=== PATIENT | female | born 1965 | race Caucasian/White ===

== ENCOUNTER 2017-01-18 21:07 | Inpatient (IN) | payer MEDICARE, OTHER ==
--- NOTE | ~2017-01-18 | HP ---
History And Physical [place] [address] [facility] [place]. [address] NAME: MANINDER SNOW : 61 STATUS : ADM [place] PAT#: [id number] AGE: 51 ADM/REG DATE : 01/18/17 MR#: [id number] REPORT SERV DATE: 01/19/17 DICTATED BY: CAPO PAIZ DATE: 01/18/17 REPORT STATUS : Draft TRANSCRIBED BY: MODL DATE: 01/18/17 DATE OF ADMISSION: 01/18/2017 CHIEF COMPLAINT: Shortness of breath. HISTORY OF PRESENT ILLNESS: The patient is a 51-year-old female with past medical history of COPD although the patient is a nonsmoker secondary to secondhand smoke, type 2 diabetes, O2 dependent from 3 to 4 L, coronary artery disease, gastroparesis, obesity, chronic back pain on chronic narcotics, congestive heart failure, fibromyalgia who presents after having progressive shortness of breath and weight gain over the last month. The patient reports that over the last month she has had increased weight gain, decreased exercise tolerance, and over the last 24 hours has had decreased exercise exertion that has been constant, moderate severity with no pain quality radiating symptoms associated with shortness of breath, orthopnea approximately 90 degrees, increased swelling in legs where she typically has chicken legs, now she has very big legs. No vomiting but did have nausea. No fever, chills, or diarrhea. No wheezing, redness, or dizziness. She has also had increased constipation and urinary retention, has previously seen Dr. Baird for her bladder who has also told that she possibly will need to do in and out caths but is not ready to use them. Symptoms are worsened with activity and lying down improved by sitting up. Symptoms are slightly better but not resolved. The patient has no increased edema, is on diuretic but not quite doing any fluid restrictions that she knows. REVIEW OF SYSTEMS: GENERAL: No fevers or chills. EYES: No eye pain or visual changes. ENT: No sore throat but did have sinus congestion which she has been on Cipro for 9/10 days. NEURO: No headache or confusion. SKIN: No urticaria or rash. RESPIRATORY: Does have shortness of breath, dyspnea on exertion. No wheezing. CV: Increased edema, has had mild chest discomfort, but no palpitations, chest discomfort associated with breathing cycle. GI: No vomiting, but positive nausea and constipation. : Dysuria with retention. MUSCULOSKELETAL: Generalized myalgias and arthralgias chronic with increased lower extremity swelling. ENDO: No fatigue or polyuria. HEME: No bleeding or bruising. IMMUNOLOGIC: Does have rhinorrhea. PSYCH: No anxiety or confusion. PAST MEDICAL HISTORY: Diabetes, diabetic neuropathy, diabetic gastroparesis, COPD, fibromyalgia, acid reflux, migraine, tension stress headache, sinusitis, coronary artery disease, CHF, and constipation. SURGERIES: Cataracts in both eyes, four bypass surgery including valve repair, complete hysterectomy, two sinus surgeries, adrenal gland removal, appendix, tubal , History And Physical [address] [address] NAME: MANINDER SNOW : 61 STATUS : ADM [place] PAT#: [id number] AGE: 51 ADM/REG DATE : 01/18/17 MR#: [id number] REPORT SERV DATE: 01/19/17 DICTATED BY: CAPO PAIZ DATE: 01/18/17 REPORT STATUS : Draft TRANSCRIBED BY: IRVIN DATE: 01/18/17 miscarriage, gallbladder, tonsils, and cyst removal from ovary. ALLERGIES: SULFA, SILVER SULFADIAZINE, SELDANE. HOME MEDICATIONS: DuoNebs, aspirin, Lipitor, ciprofloxacin ophthalmic, Plavix, Cardizem, Colace, fentanyl, ferrous sulfate, Flonase, folic acid, Lasix, Neurontin, hydralazine, NovoLog, Levemir, Combivent, Imdur, Prinivil, Claritin, Reglan, Roxicodone, prednisolone, Phenergan, Ranexa, Refresh Endura, and bromfenac. PHYSICAL EXAMINATION: VITAL SIGNS: The patient's blood pressure 147/60, temperature 98, pulse 82, respirations 20, O2 sats 92% on 2 L. GENERAL: No acute distress at rest. Obese. EYES: No scleral icterus. EOMI. ENT: Nares patent. Tongue midline. Round facies. RESPIRATORY: Bibasilar rales with distant breath sounds. No stridor, does have bibasilar rales but no stridor. CV: Regular rate. Mild systolic murmur. Bilateral 3+ pedal edema. GI: Soft, nontender. Central obesity. : Deferred. MUSCULOSKELETAL: Moves all extremities. SKIN: Warm and dry. LYMPH/EXTREMITIES: 3+ bilateral edema. NEURO: Alert and oriented. Symmetrical strength in hands. Gait not tested. PSYCH: Appropriate mood and affect in joking manner. DATA: BNP 112.5. CBC; WBC count 12.3, H and H 9.1 and 28.8, platelets 213, INR 1.0. Sodium 141, potassium 4.2, chloride 98, BUN 47, bicarb 37, creatinine 1.42, glucose 72, magnesium 2.2. Troponin 0.05. Chest x-ray with cardiomegaly. Official report still pending, does have basilar congestion and slight increased congestion left lung tony. EKG; rate 82, normal sinus rhythm, QTc 450. ASSESSMENT AND PLAN: 1. Likely acute heart failure exacerbation. 2. Chest pain. 3. Chronic obstructive pulmonary disease. 4. Diabetes type 2. 5. Leukocytosis. 6. Obesity. 7. Urinary retention. 8. Obstructive sleep apnea. 9. Anemia. PLAN: History And Physical [address] [address] NAME: MANINDER SNOW : 61 STATUS : ADM [place] PAT#: [id number] AGE: 51 ADM/REG DATE : 01/18/17 MR#: [id number] REPORT SERV DATE: 01/19/17 DICTATED BY: CAPO PAIZ DATE: 01/18/17 REPORT STATUS : Draft TRANSCRIBED BY: IRVIN DATE: 01/18/17 1. For CHF exacerbation, does have symptoms with orthopnea, bilateral edema, has had history of mitral repair, reports history of heart failure, follows Dr. Vasques, has Holter in place with positive weight gain. IV diuresis. The patient was taking Lasix p.o. but will likely need IV, Bumex, monitor I's and O's. Fluid restriction protocol initiated. We will repeat echocardiogram. Although the patient BNP is only mildly elevated clinically appears quite volume overloaded. 2. Chest pain. Treat CHF exacerbation. Follow troponins, EKG, echocardiogram. 3. COPD, O2, DuoNebs. The patient has CPAP that is to be reset and optimize on Saturday. She has not been using CPAP for years. 4. Diabetes type 2. Sliding scale insulin Levemir, titrate as p.o. increases. 5. Leukocytosis, has been on Cipro for sinusitis. 6. Obesity, positive weight gain with fluid, will need diuresis and monitoring. 7. Urinary retention with Fernandez. May need to follow with Dr. Baird. 8. Obstructive sleep apnea. CPAP, does follow with pulmonology as an outpatient. I reinforced use of CPAP, to get new training on Saturday from [employer]. We will continue O2 at this time. 9. Anemia. Monitor H and H. The patient reports having colonoscopy approximately a year ago. All questions answered to patient family at bedside. DISPOSITION: Pending echocardiogram and diuresis, stability and treatment as above and resolution of symptoms. DDN/MODL Capo Paiz MD / [id number] CC: MD Franky Downing II, M.D.
--- NOTE | ~2017-01-18 | CN ---
Consultation Report [facility] [address] [place]. [address] NAME: MANINDER SEGAL : 61 STATUS : ADM IN PAT#: [id number] AGE: 51 ADM/REG DATE : 01/19/17 MR#: [id number] REPORT SERV DATE: 01/23/17 DICTATED BY: DATE: REPORT STATUS : Draft TRANSCRIBED BY: MODL DATE: 01/23/17 DATE OF CONSULTATION: REASON FOR CONSULTATION: Acute kidney injury. HISTORY OF PRESENT ILLNESS: Ms Segal is a 51-year-old white female with CKD, who is followed in our office. It looks as though her baseline creatinine is around 1.4. She has known COPD, diabetes with multiple complications of such, and history of urinary retention. She presented to the hospital with shortness of breath, dyspnea on exertion, and worsening edema. The only recent medicine changes were approximately a few weeks to a month prior. She had some upper respiratory sinus symptoms, has been placed on some steroids. She thinks that is around the time that her edema began worsening. She also got put on some Cipro, and just being here in the hospital, her creatinine has gone from 1.4-2.9. She has also become increasingly more hyperkalemic with potassium of 5.7 today. This has been an ongoing issue for years now. She does have a history of pheochromocytoma and one adrenalectomy. She denies any decrease in urinary frequency, but did notice a decrease in the amount prior to presentation. PAST MEDICAL HISTORY: CKD, hyperkalemia, acute kidney injury, COPD, coronary artery disease, bypass, pheochromocytoma, status post one adrenalectomy, mitral valve replacement, diabetes, gastroparesis, urinary retention, anemia, chronic pain, and fibromyalgia. SOCIAL HISTORY: She is . No tobacco, alcohol, or illicit drug use. ALLERGIES: SULFA AND SILVER. FAMILY MEDICAL HISTORY: No end-stage renal disease. REVIEW OF SYSTEMS: Twelve-point review of systems was obtained and negative with the exception of that in the HPI. PHYSICAL EXAMINATION: VITAL SIGNS: Temperature 97.9, blood pressure 131/60, pulse 88, respiratory rate 20, O2 saturation is 98% on 4 L. GENERAL: This is a pleasant, cooperative, overweight white female. She is awake, alert, and oriented, answers questions appropriately. HEENT: Normocephalic and atraumatic. Conjunctivae clear. Sclerae anicteric. Pupils are equal and round. Oral mucosa is dry. NECK: Thick. I did not see any lymphadenopathy. LUNGS: Respirations are even and unlabored. Breath sounds are clear to auscultation. HEART: Rate is regular. Heart tones are distant. I did not hear any murmur, rub, or gallop. ABDOMEN: Obese, soft, nontender. Bowel sounds active. No masses or hepatosplenomegaly. No bruits. No CVA tenderness. Consultation Report [place] [id number] [place]. [address] NAME: MANINDER SEGAL : 61 STATUS : ADM IN PAT#: [id number] AGE: 51 ADM/REG DATE : 01/19/17 MR#: [id number] REPORT SERV DATE: 01/23/17 DICTATED BY: DATE: REPORT STATUS : Draft TRANSCRIBED BY: MODShirley DATE: 01/23/17 BACK: Within normal limits. EXTREMITIES: Noted with 1 to 2+ pitting edema. SKIN: Warm, dry, and intact. Pale. No unusual rash or skin lesions. NEURO: Generalized weakness. No focal deficits. Mood and affect, pleasant and appropriate. PERTINENT LABS AND X-RAYS: Her urinalysis, 30 mg/dL of protein, 54 red blood cells per high- power field. Moderate amount of blood on dipstick. Renal ultrasound was negative for any obstructive process. Sodium 139, potassium 5.7, chloride 99, CO2 37. BUN of 80, creatinine of 2.9, calcium of 8.6. WBCs 10, H and H are 8 and 27, and platelets 210,000. Echo was normal. IMPRESSION: 1. Acute kidney injury. 2. Chronic kidney disease. 3. Hyperkalemia. 4. Edema. 5. Hypertension. 6. History of urinary retention. 7. History of pheochromocytoma with one adrenalectomy. 8. Chronic obstructive pulmonary disease, on chronic O2. PLAN: Suspected acute kidney injury is worse in the setting of a possible over diuresis especially in the light of her normal echo plus hypotension. Edema was probably provoked by her prednisone. We will check urine studies to see if she has had progression of diabetic nephropathy. We will also check a cortisol level. Her anemia seems to have worsened as well. We will check iron studies and check an ABG. Decrease Neurontin. CHUYITA hoscarmita for edema control and check an SPEP. We will follow along with you. Thank you for the consultation. She is already seen in our CKD Clinic. She already has an appointment later this month and we will follow her there as well. OLIMPIA YUNIOR Fregoso / [id number]
--- NOTE | ~2017-01-18 | DS ---
Discharge Summary [address] [address] NAME: MANINDER SNOW : 61 STATUS : DIS IN PAT#: [id number] AGE: 51 ADM/REG DATE : 01/19/17 MR#: [id number] REPORT SERV DATE: 01/29/17 DICTATED BY: TOÑO GALLOWAY DATE: 01/28/17 REPORT STATUS : Draft TRANSCRIBED BY: MODL DATE: 01/28/17 ADMISSION DATE: 01/19/2017 DISCHARGE DATE: 01/28/2017 DISCHARGE DIAGNOSES: 1. Acute diastolic heart failure. 2. Acute kidney injury on chronic kidney disease, associated with diuresis. 3. Chronic hypoxemic and hypercapnic respiratory failure thought secondary to untreated obstructive sleep apnea and obesity hypoventilation syndrome. 4. Type 2 diabetes, uncontrolled during hospitalization with periods of hypo and hyperglycemia related to variable p.o. intake and gastroparesis. 5. Gastroparesis. 6. Opioid-induced constipation. 7. Chronic pain syndrome. 8. Peripheral neuropathy. 9. Voiding dysfunction. 10.Morbid obesity. 11.Fatty liver. 12.Hyperkalemia associated with acute kidney injury and HORTENSIA inhibitor use. 13.Coronary artery disease, post CABG. 14.Previous mitral valve repair. 15.Previous pheochromocytoma, post resection. 16.Chronic anemia. 17.Acute anemia. 18.Myoclonus thought secondary to Reglan in the setting of acute kidney injury plus other, improved at discharge. 19.Chronic obstructive pulmonary disease by history. OPERATIONS AND PROCEDURES: None. PRESENT ILLNESS: This is a 51-year-old white female who was triaged in the emergency room on 01/18/2017 at 1709 hours complaining of chest pain, swelling, abdominal distention, and shortness of breath. After evaluation in the emergency room, she was referred to the Hospitalist Service for admission. She was seen by Dr. Philip Matthew and admitted as described on admission history and physical examination. Additional history included weight gain and diminished exercise tolerance over the previous month with worsening shortness of breath over 24 hours prior to admission. She also complained of increasing constipation and urinary retention. ADDITIONAL HISTORY: Per Dr. Matthew. PHYSICAL EXAMINATION: Per Dr. Matthew. ADMISSION LABORATORY: Per Dr. Matthew. Discharge Summary [address] [address] NAME: MANINDER SNOW : 61 STATUS : DIS IN PAT#: [id number] AGE: 51 ADM/REG DATE : 01/19/17 MR#: [id number] REPORT SERV DATE: 01/29/17 DICTATED BY: TOÑO GALLOWAY DATE: 01/28/17 REPORT STATUS : Draft TRANSCRIBED BY: IRVIN DATE: 01/28/17 HOSPITAL COURSE: She was admitted by Dr. Matthew with: 1. Likely acute heart failure exacerbation. 2. Chest pain. 3. Chronic obstructive pulmonary disease. 4. Type 2 diabetes. 5. Leukocytosis. 6. Obesity. 7. Urinary retention. 8. Obstructive sleep apnea. 9. Anemia. She was admitted to [address] [place] [address]. She was started on IV diuresis. Her hospitalist care was assumed by Dr. Shaka Pereira on 01/19/2017, 01/20/2017, and 01/21/2017. Cardiology consultation was obtained with Dr. Vasques. An echocardiogram was obtained. Her echocardiogram was technically difficult. Her EF appeared to be normal. Cardiology did not suggest further evaluation noting troponins were 0.05, 0.05, and 0.05. With IV diuresis, she symptomatically improved. However, her creatinine increased from 1.42 on admission to 2.96 on 01/23/2017. During this time, she had a Fernandez catheter because of her urinary retention. A renal ultrasound did not show any abnormality. She is followed by the Nephrology group. Consultation was obtained. She was seen and it was suspected that her acute kidney injury was from over diuresis plus possible hypotension. She was given a small volume of IV fluid. Her diuretics had previously been held as had her HORTENSIA inhibitor therapy. By discharge, her creatinine had fallen back to 1.45. On 01/23/2017, arterial blood gases were obtained, and her pH was 7.33, pCO2 of 78, PO2 of 101 on FiO2 of 0.36. She has documented sleep apnea. She is also thought to have obesity hypoventilation syndrome. She is followed by Dr. Lott. She has not been using home CPAP as prescribed and in fact did not have her machine. During this hospitalization, auto titrating CPAP was made available. She admitted to limited compliance because of anxiety with maximum use being perhaps 1-1/2 hours per night. She agreed to purchase a CPAP machine and make every attempt to enhance her use. With her JORDAN, she developed some myoclonus. This was thought to be multifactorial with a large component related to Reglan use for gastroparesis. Her Reglan doses were adjusted. Her myoclonus improved. Her blood sugar control was quite variable during her hospitalization related to her gastroparesis, variable p.o. intake, and comorbidities. She had periods of both hyper and hypoglycemia. She had periods of hypoglycemia despite a dramatic reduction on admission from her home insulin doses. This will require further titration in the rehab setting. Her hemoglobin on admission was 9.1 and was 8.1 at discharge. She has reticulocyte count Discharge Summary [facility] [address] [facility] [address] [place]. [address] NAME: MANINDER SNOW : 61 STATUS : DIS IN PAT#: [id number] AGE: 51 ADM/REG DATE : 01/19/17 MR#: [id number] REPORT SERV DATE: 01/29/17 DICTATED BY: TOÑO GALLOWAY DATE: 01/28/17 REPORT STATUS : Draft TRANSCRIBED BY: IRVIN DATE: 01/28/17 percent of 2.8 and absolute reticulocyte count of 79.2. Anemia evaluation included a normal LDH of 193, normal iron of 42, low TIBC of 215, and ferritin of 135. Her B12 was 563, TSH 1.64, and a serum protein electrophoresis did not demonstrate any monoclonal gammopathy. Other issues during her hospitalization included adjustment of her blood pressure medication to avoid hypotension and intensification of her opioid induced constipation regimen. She was seen by Physical Therapy and Occupational Therapy early in her hospitalization. Inpatient rehab was recommended. She had used [facility] in the past and requested transfer there. She was approved for transfer. By 01/28/2017, it was felt she had achieved a level of improvement and stability where she could be safely transferred. On discharge from [facility], she will need followup with Dr. Lott, Dr. Baird, the Nephrology Groups, Dr. Patterson, and Dr. Vasques. At [place], she will use CPAP at 18 cm. She will continue O2 3 L/minute by nasal cannula during the day. Her transfer medications pending provider followup there will be aspirin 81 mg daily; Lipitor 40 mg daily; Plavix 75 mg daily; Duragesic patch 75 mcg, change every 72 hours; iron 325 mg daily; Flonase nasal spray daily at bedtime as needed; folic acid 1 mg daily; Lasix 40 mg a.m., 80 mg p.m. per Nephrology recommendation; Neurontin 400 mg with meals; NovoLog level 2 correction scale before meals; NovoLog 20 units before meals; if she eats greater than 50% of her meal, Levemir 10 units a.m., 32 units p.m.; Imdur 30 mg daily; Claritin 10 mg daily; Reglan 10 mg before meals; MiraLAX one packet twice daily; Senokot two twice daily; Phenergan 50 mg with meals; Ranexa 1000 mg daily; Anoro Ellipta 62.5/25, one inhalation daily; Apresoline 50 mg twice daily; Roxicodone 30 mg with meals; Tylenol 650 mg every four hours as needed; Dulcolax suppository as needed; hypoglycemia protocol with glucagon or glucose tabs as needed, Zofran 4 mg p.o. or sublingually every four hours as needed for nausea; Combivent Respimat four times daily; DuoNeb twice daily as needed; and the following eyedrops, Ciloxan ophthalmic, Pred-Forte, bromfenac, and Refresh as directed. She will not use Cardizem CD twice daily or Prinivil. Instead, she will use Coreg 12.5 mg twice daily, which provided satisfactory blood pressure control. Discharge time greater than 30 minutes. DD/MODL Toño Galloway M.D. / [id number] CC: Deana Canas M.D. Discharge Summary [address] [address] NAME: MANINDER SNOW : 61 STATUS : DIS IN PAT#: [id number] AGE: 51 ADM/REG DATE : 01/19/17 MR#: [id number] REPORT SERV DATE: 01/29/17 DICTATED BY: TOÑO GALLOWAY DATE: 01/28/17 REPORT STATUS : Draft TRANSCRIBED BY: MODL DATE: 01/28/17 Deana Mccarthy Jr., II, MD Darshan D. Naik, MD John C House, M.D. [facility] Jose Alejandro Lott MD
--- NOTE | ~2017-01-18 | ECH ---
Echocardiogram [place] [id number] [place]. [address] NAME: MANINDER SNOW : 61 STATUS : ADM IN PAT#: [id number] AGE: 51 ADM/REG DATE : 01/19/17 MR#: [id number] REPORT SERV DATE: 01/21/17 DICTATED BY: REJI VASQUES JR. DATE: 01/21/17 REPORT STATUS : Draft TRANSCRIBED BY: MODL DATE: 01/21/17 DATE OF ACQUISITION: 01/19/2017. ROOM NUMBER: 6111. INDICATIONS: CHF. TECH: Hang Shabazz is the RDCS. MEASUREMENTS: M-Mode and 2-dimensional echocardiography were performed. This was a technically difficult study. Definity contrast imaging agent was utilized to enhance the endocardial borders. The left atrium was dilated 4 cm compared to an aortic root diameter of 2.7 cm. The left ventricle was normal in size measuring 5.2 cm in end-diastole and 3.6 cm in end-systole. Overall, there appeared to be normal left ventricular systolic function without regional wall motion abnormality with ejection fraction of approximately 55%. The aortic valve was trileaflet. The mitral valve appeared to be poorly visualized. The remaining cardiac valves appeared to be poorly visualized. No pericardial or pleural effusion could be seen. A linear echo was noted and a pacemaker lead cannot be excluded. DOPPLER/COLOR FLOW: Conventional and Doppler color flow imaging were performed. Pseudonormalization and increased left atrial pressures are suggested. There was no mitral insufficiency. There was no significant tricuspid insufficiency. A peak right ventricular systolic pressure could not be obtained. Peak gradient across the aortic valve measured 7 mmHg and did not suggest aortic stenosis. CONCLUSION: NORMAL LEFT VENTRICULAR SYSTOLIC FUNCTION WITH DIASTOLIC DYSFUNCTION AND INCREASED LEFT ATRIAL PRESSURES WITH NO SIGNIFICANT VALVULAR DISEASE, NO EVIDENCE OF PULMONARY HYPERTENSION, AND IT IS A TECHNICALLY DIFFICULT STUDY. /IRVIN Reji Vasques Jr., M.D. / [id number] CC: MD Franky Downing II, M.D.
[2017-01-18 18:45] LABS: BASOPHILS 0.2 %; BASOPHILS ABSOLUTE 0.03 10/3/uL (0.0-0.16); EOSINOPHILS 2.8 %; EOSINOPHILS ABSOLUTE 0.34 10/3/uL (0.0-0.53); ER CBC TAT 0 Hrs 07 Mins; HEMOGLOBIN 9.1 g/dL (12.0-16.0); IMMATURE GRANULOCYTES 0.4 %; IMMATURE GRANULOCYTES ABSOLUTE 0.05 10/3/uL (0.0-0.11); LYMPHOCYTES 17.6 %; LYMPHOCYTES ABSOLUTE 2.17 10/3/uL (0.67-4.30); MEAN CORPUS HGB CONC 31.6 g/dL (32.0-36.0); MEAN CORPUSCULAR HEMOGLOB 29.1 pg (26.0-34.0); MEAN PLATELET VOLUME 11.1 fL (9.2-13.0); MONOCYTES 7.6 %; MONOCYTES ABSOLUTE 0.94 10/3/uL (0.21-1.20); NEUTROPHILS 71.4 %; NEUTROPHILS ABSOLUTE 8.78 10/3/uL (2.02-8.40); PLATELET COUNT 213 10/3/uL (150-400); RED CELL COUNT 3.13 10/6/uL (4.0-5.6); WHITE BLOOD CELLS 12.3 10/3/uL (4.5-10.5)
[2017-01-18 18:47] LABS: HEMATOCRIT 28.8 % (36.0-48.0); MANUAL DIFF NO %
[2017-01-18 18:55] LABS: PARTIAL THROMBO TIME 27.2 SEC (22.5-37.2)
[2017-01-18 19:02] LABS: CHLORIDE, SERUM 98 MMOL/L (96-112); CO2 (CARBON DIOXIDE) 37 MMOL/L (24-34); CREATININE 1.42 MG/DL (0.55-1.02); GFR AFRICAN AMERICAN 49 ML/MIN (>=60); GFR NON AFRICAN AMERICAN 42 ML/MIN (>=60); GLUCOSE, SERUM 72 MG/DL (60-99); POTASSIUM, SERUM 4.2 MMOL/L (3.5-5.3); SODIUM, SERUM 141 MMOL/L (135-148)
[2017-01-18 19:03] LABS: BUN (BLOOD UREA NITROGEN) 47 MG/DL (6-23); CHEST PAIN PROFILE TAT 0 Hrs 25 Mins; TROPONIN I 0.05 NG/ML (<0.05)
[~2017-01-18 21:07] MED LIST: CARTIA XT120 MG/24 PO; DIGITEK0.125 MG PO; DURA100 TOP; FOLIC PO; HALF81 PO; HUMULIN-R U-500 SC; IMDUR30 PO; IRON325 MG PO; LEVEMIR SC; LIDODERM TOP; LIPITOR20 PO; NEUR600 PO; NOVOLOG SC; NYS500UDL PO; OCEAN NAS; PHEN50TAB PO; PLAVIX PO; PREV30 PO; PRIN2.5 PO; RAN500 PO; REG PO; ROXICODONE30 MG PO; ZEBETA5 PO
[2017-01-18] MEDS ORDERED: LEVEMFLXPN SC ×2 (21:09)
[2017-01-18] MEDS ORDERED: NEUR400 PO (21:10)
[2017-01-18] MEDS ORDERED: ROXICODONE30 MG PO (21:10)
[2017-01-18] MEDS ORDERED: NOVOPEN SC (21:10)
[2017-01-18] MEDS ORDERED: DURA75 TOP (21:11)
[2017-01-18] MEDS ORDERED: CLARIT10 PO (21:11)
[2017-01-18] MEDS ORDERED: PLAVIX PO (21:12)
[2017-01-18] MEDS ORDERED: PR25 PO (21:12)
[2017-01-18] MEDS ORDERED: CARDCD120 PO (21:13)
[2017-01-18] MEDS ORDERED: RANEXA1000 MG PO (21:13)
[2017-01-18] MEDS ORDERED: APRES50 PO (21:13)
[2017-01-18] MEDS ORDERED: IMDUR30 PO (21:14)
[2017-01-18] MEDS ORDERED: LIPITOR40 PO (21:14)
[2017-01-18] MEDS ORDERED: REG PO (21:16)
[2017-01-18] MEDS ORDERED: L40 PO (21:16)
[2017-01-18] MEDS ORDERED: DUONEB INH (21:17)
[2017-01-18] MEDS ORDERED: ASAB PO (21:17)
[2017-01-18] MEDS ORDERED: PRIN5 PO (21:18)
[2017-01-18] MEDS ORDERED: FOLIC PO (21:18)
[2017-01-18] MEDS ORDERED: DSS PO (21:18)
[2017-01-18] MEDS ORDERED: FERROUS SULF325 M1 PO (21:18)
[2017-01-18] MEDS ORDERED: ANOROELLIPTA INH (21:19)
[2017-01-18] MEDS ORDERED: BROMFENAC 0.09% OPH (21:20)
[2017-01-18] MEDS ORDERED: CILOXAN OPH (21:21)
[2017-01-18] MEDS ORDERED: REFRES1 OPH (21:21)
[2017-01-18] MEDS ORDERED: COMBIVENT RESPIM4 GM INH (21:22)
[2017-01-18] MEDS ORDERED: CARDCD180 PO (21:24)
[2017-01-18] MEDS ORDERED: PREDFORTE OPH (21:25)
[2017-01-18] MEDS ORDERED: CIP5 PO (21:26)
[2017-01-18] MEDS ORDERED: FLONASE NAS ×2 (21:27→21:28)
[2017-01-19 02:11] LABS: CK-MB 1.3 NG/ML; CPK 25 U/L (0-200); TROPONIN I 0.05 NG/ML (<0.05)
[2017-01-19 07:12] LABS: BASOPHILS 0.1 %; BASOPHILS ABSOLUTE 0.01 10/3/uL (0.0-0.16); EOSINOPHILS 2.6 %; EOSINOPHILS ABSOLUTE 0.24 10/3/uL (0.0-0.53); HEMATOCRIT 28.2 % (36.0-48.0); HEMOGLOBIN 8.8 g/dL (12.0-16.0); IMMATURE GRANULOCYTES 0.3 %; IMMATURE GRANULOCYTES ABSOLUTE 0.03 10/3/uL (0.0-0.11); LYMPHOCYTES 12.2 %; LYMPHOCYTES ABSOLUTE 1.13 10/3/uL (0.67-4.30); MEAN CORPUS HGB CONC 31.2 g/dL (32.0-36.0); MEAN CORPUSCULAR VOLUME 93.1 fL (80-100); MEAN PLATELET VOLUME 11.2 fL (9.2-13.0); MONOCYTES 4.8 %; MONOCYTES ABSOLUTE 0.44 10/3/uL (0.21-1.20); NEUTROPHILS ABSOLUTE 7.41 10/3/uL (2.02-8.40); PLATELET COUNT 184 10/3/uL (150-400); RBC DISTRIBUTION WIDTH 12.8 % (12.0-16.0); RED CELL COUNT 3.03 10/6/uL (4.0-5.6); WHITE BLOOD CELLS 9.3 10/3/uL (4.5-10.5)
[2017-01-19 07:24] LABS: MANUAL DIFF NO %
[2017-01-19 07:27] LABS: CALCIUM, SERUM 8.9 MG/DL (8.5-10.4); CHLORIDE, SERUM 96 MMOL/L (96-112); CO2 (CARBON DIOXIDE) 36 MMOL/L (24-34); CPK 22 U/L (0-200); CREATININE 1.47 MG/DL (0.55-1.02); GFR AFRICAN AMERICAN 47 ML/MIN (>=60); GFR NON AFRICAN AMERICAN 40 ML/MIN (>=60); POTASSIUM, SERUM 4.6 MMOL/L (3.5-5.3); SODIUM, SERUM 141 MMOL/L (135-148)
[2017-01-19 07:28] LABS: BUN (BLOOD UREA NITROGEN) 43 MG/DL (6-23); CK-MB 1.3 NG/ML; GLUCOSE, SERUM 329 MG/DL (60-99); TROPONIN I 0.05 NG/ML (<0.05)
[2017-01-20 06:41] LABS: BUN (BLOOD UREA NITROGEN) 48 MG/DL (6-23); CALCIUM, SERUM 9.4 MG/DL (8.5-10.4); CHLORIDE, SERUM 98 MMOL/L (96-112); CO2 (CARBON DIOXIDE) 36 MMOL/L (24-34); CREATININE 1.43 MG/DL (0.55-1.02); GFR AFRICAN AMERICAN 48 ML/MIN (>=60); GFR NON AFRICAN AMERICAN 42 ML/MIN (>=60); GLUCOSE, SERUM 226 MG/DL (60-99); POTASSIUM, SERUM 4.7 MMOL/L (3.5-5.3); SODIUM, SERUM 143 MMOL/L (135-148)
[2017-01-21 06:46] LABS: GFR AFRICAN AMERICAN 27 ML/MIN (>=60); GFR NON AFRICAN AMERICAN 23 ML/MIN (>=60)
[2017-01-21 06:48] LABS: CALCIUM, SERUM 8.9 MG/DL (8.5-10.4); CHLORIDE, SERUM 98 MMOL/L (96-112); CO2 (CARBON DIOXIDE) 36 MMOL/L (24-34); GLUCOSE, SERUM 267 MG/DL (60-99)
[2017-01-21 06:53] LABS: BUN (BLOOD UREA NITROGEN) 59 MG/DL (6-23)
[2017-01-21 06:58] LABS: POTASSIUM, SERUM 5.5 MMOL/L (3.5-5.3); SODIUM, SERUM 142 MMOL/L (135-148)
[2017-01-22 04:50] LABS: BASOPHILS 0.1 %; BASOPHILS ABSOLUTE 0.01 10/3/uL (0.0-0.16); EOSINOPHILS 3.5 %; EOSINOPHILS ABSOLUTE 0.36 10/3/uL (0.0-0.53); HEMATOCRIT 26.3 % (36.0-48.0); HEMOGLOBIN 8.2 g/dL (12.0-16.0); IMMATURE GRANULOCYTES 0.4 %; IMMATURE GRANULOCYTES ABSOLUTE 0.04 10/3/uL (0.0-0.11); LYMPHOCYTES 17.9 %; LYMPHOCYTES ABSOLUTE 1.84 10/3/uL (0.67-4.30); MEAN CORPUS HGB CONC 31.2 g/dL (32.0-36.0); MEAN CORPUSCULAR HEMOGLOB 29.3 pg (26.0-34.0); MEAN CORPUSCULAR VOLUME 93.9 fL (80-100); MEAN PLATELET VOLUME 11.7 fL (9.2-13.0); MONOCYTES ABSOLUTE 0.72 10/3/uL (0.21-1.20); NEUTROPHILS 71.1 %; NEUTROPHILS ABSOLUTE 7.32 10/3/uL (2.02-8.40); PLATELET COUNT 184 10/3/uL (150-400); RBC DISTRIBUTION WIDTH 13.1 % (12.0-16.0); WHITE BLOOD CELLS 10.3 10/3/uL (4.5-10.5)
[2017-01-22 04:53] LABS: MANUAL DIFF NO %
[2017-01-22 05:05] LABS: BUN (BLOOD UREA NITROGEN) 72 MG/DL (6-23); CALCIUM, SERUM 8.5 MG/DL (8.5-10.4); CHLORIDE, SERUM 95 MMOL/L (96-112); CO2 (CARBON DIOXIDE) 35 MMOL/L (24-34); CREATININE 2.47 MG/DL (0.55-1.02); GFR AFRICAN AMERICAN 25 ML/MIN (>=60); GFR NON AFRICAN AMERICAN 22 ML/MIN (>=60); GLUCOSE, SERUM 205 MG/DL (60-99); POTASSIUM, SERUM 5.7 MMOL/L (3.5-5.3); SODIUM, SERUM 140 MMOL/L (135-148)
[2017-01-22 10:28] LABS: RETICULOCYTE COUNT 2.8 % (0.5-2.5); RETICULOCYTE COUNT ABSOLUTE 79.2 10/3/uL (20.2-119.8)
[2017-01-22 11:04] LABS: FERRITIN 135 NG/ML (8-252); IRON BINDING CAPACITY 248 MCG/DL (225-410); IRON, SERUM 60 MCG/DL (35-150)
[2017-01-22 18:07] LABS: BUN (BLOOD UREA NITROGEN) 74 MG/DL (6-23); CALCIUM, SERUM 8.8 MG/DL (8.5-10.4); CHLORIDE, SERUM 99 MMOL/L (96-112); CO2 (CARBON DIOXIDE) 37 MMOL/L (24-34); CREATININE 2.78 MG/DL (0.55-1.02); GFR AFRICAN AMERICAN 22 ML/MIN (>=60); GFR NON AFRICAN AMERICAN 19 ML/MIN (>=60); GLUCOSE, SERUM 84 MG/DL (60-99); POTASSIUM, SERUM 5.5 MMOL/L (3.5-5.3); SODIUM, SERUM 142 MMOL/L (135-148)
[2017-01-23 06:25] LABS: HEMATOCRIT 27.9 % (36.0-48.0); HEMOGLOBIN 8.4 g/dL (12.0-16.0); MANUAL DIFF YES %; MEAN CORPUS HGB CONC 30.1 g/dL (32.0-36.0); MEAN CORPUSCULAR HEMOGLOB 29.2 pg (26.0-34.0); MEAN CORPUSCULAR VOLUME 96.9 fL (80-100); MEAN PLATELET VOLUME 12.2 fL (9.2-13.0); PLATELET COUNT 210 10/3/uL (150-400); RBC DISTRIBUTION WIDTH 12.9 % (12.0-16.0); RED CELL COUNT 2.88 10/6/uL (4.0-5.6); WHITE BLOOD CELLS 10.8 10/3/uL (4.5-10.5)
[2017-01-23 06:38] LABS: BUN (BLOOD UREA NITROGEN) 80 MG/DL (6-23); CALCIUM, SERUM 8.6 MG/DL (8.5-10.4); CHLORIDE, SERUM 99 MMOL/L (96-112); CO2 (CARBON DIOXIDE) 37 MMOL/L (24-34); CREATININE 2.96 MG/DL (0.55-1.02); GFR AFRICAN AMERICAN 20 ML/MIN (>=60); GFR NON AFRICAN AMERICAN 17 ML/MIN (>=60); GLUCOSE, SERUM 177 MG/DL (60-99); POTASSIUM, SERUM 5.7 MMOL/L (3.5-5.3); SODIUM, SERUM 139 MMOL/L (135-148)
[2017-01-23 07:04] LABS: EOSINOPHILS 3 %; EOSINOPHILS ABSOLUTE (CALC) 0.32 10/3/uL (0.0-0.53); GIANT PLATELET OCC; LYMPHOCYTES 16 %; LYMPHOCYTES ABSOLUTE (CALC) 1.73 10/3/uL (0.67-4.30); MONOCYTES 5 %; MONOCYTES ABSOLUTE (CALC) 0.54 10/3/uL (0.21-1.20); NEUTROPHILS ABSOLUTE (CALC) 8.21 10/3/uL (2.02-8.40); PLATELET ESTIMATE ADQ (ADEQUATE); SEGMENTED NEUTROPHIL (0) 76 %; TOTAL NUCLEATED CELLS 100
[2017-01-23 07:05] LABS: RBC MORPHOLOGY NORM (NORMAL)
[2017-01-23 14:35] LABS: ASCORBIC ACID (UR NOT ORDER) NEG (NEG); BILIRUBIN, URINE NEGATIVE (NEG); KETONE, URINE NEGATIVE (NEG); LEUKOCYTE ESTERASE(NOT OR NEG (NEG); WBC (NOT ORDERED) (RFLEX) 1 (0-5)
[2017-01-23 16:22] LABS: CREATININE, URINE 47.1 MG/DL
[2017-01-23 16:27] LABS: % IRON SAT 20 % (20-50); FOLATE 69.5 NG/ML (>5.2); IRON BINDING CAPACITY 215 MCG/DL (225-410); IRON, SERUM 42 MCG/DL (35-150)
[2017-01-23 17:10] LABS: ALLENS TEST Pos; BE (BASE EXCESS) 12.4 MEQ/L (0 +/- 2.5); CARBOXYHEMOGLOBIN 1.6 % (0-3); DEVICE NC; HCO3 (ACTUAL BICARBONATE) 40.1 MEQ/L (23-27); HEMOBLOGIN CONTENT 8.2 G/DL (12-16); INSTRUMENT SERIAL # 8083; METHEMOGLOBIN 0.3 % (0-3); O2 CONTENT 11.2 VOL% (18-24); OPERATOR ID 35785; PCO2 (CO2 TENSION) 78 MMHG (35-45); PO2 (O2 TENSION) 101 MMHG (79-93); SAMPLE Arterial; pH 7.33 (7.37-7.43)
[2017-01-24 06:43] LABS: BASOPHILS 0.2 %; BASOPHILS ABSOLUTE 0.02 10/3/uL (0.0-0.16); EOSINOPHILS 3.5 %; EOSINOPHILS ABSOLUTE 0.32 10/3/uL (0.0-0.53); HEMATOCRIT 26.7 % (36.0-48.0); HEMOGLOBIN 8.3 g/dL (12.0-16.0); IMMATURE GRANULOCYTES 0.3 %; IMMATURE GRANULOCYTES ABSOLUTE 0.03 10/3/uL (0.0-0.11); LYMPHOCYTES 15.9 %; LYMPHOCYTES ABSOLUTE 1.47 10/3/uL (0.67-4.30); MEAN CORPUS HGB CONC 31.1 g/dL (32.0-36.0); MEAN CORPUSCULAR HEMOGLOB 29.6 pg (26.0-34.0); MEAN CORPUSCULAR VOLUME 95.4 fL (80-100); MEAN PLATELET VOLUME 10.8 fL (9.2-13.0); MONOCYTES 6.6 %; MONOCYTES ABSOLUTE 0.61 10/3/uL (0.21-1.20); NEUTROPHILS 73.5 %; NEUTROPHILS ABSOLUTE 6.79 10/3/uL (2.02-8.40); PLATELET COUNT 172 10/3/uL (150-400); RBC DISTRIBUTION WIDTH 12.7 % (12.0-16.0); WHITE BLOOD CELLS 9.2 10/3/uL (4.5-10.5)
[2017-01-24 06:46] LABS: MANUAL DIFF NO %
[2017-01-24 06:58] LABS: CALCIUM, SERUM 8.8 MG/DL (8.5-10.4); CHLORIDE, SERUM 100 MMOL/L (96-112); CO2 (CARBON DIOXIDE) 34 MMOL/L (24-34); GLUCOSE, SERUM 209 MG/DL (60-99); PHOSPHORUS, SERUM 3.5 MG/DL (2.5-4.5); POTASSIUM, SERUM 5.5 MMOL/L (3.5-5.3); SODIUM, SERUM 138 MMOL/L (135-148)
[2017-01-24 07:00] LABS: BUN (BLOOD UREA NITROGEN) 70 MG/DL (6-23); CREATININE 2.19 MG/DL (0.55-1.02); GFR AFRICAN AMERICAN 29 ML/MIN (>=60); GFR NON AFRICAN AMERICAN 25 ML/MIN (>=60)
[2017-01-24 07:06] LABS: T PROTEIN (ELECT)(NOT OR 6.2 G/DL (6.0-8.5)
[2017-01-24 09:46] LABS: A/G 1.23 RATIO (0.9-2.10); ALB RELATIVE % 55.1 % (60.0-89.0); ALBUMIN (ELECTRO) 3.42 GM/DL (3.2-5.5); ALPHA 1 (ELECTRO) 0.25 GM/DL (0.1-0.4); ALPHA 2 (ELECTRO) 0.95 GM/DL (0.5-1.10); ALPHA 2 RELAT % 15.3 % (4.5-26.0); BETA GLOBULIN (SPE) 0.79 GM/DL (0.60-1.30); BETA RELATIVE % 12.7 % (9.0-22.0); GAMMA RELAT % 12.9 % (6.0-22.0)
[2017-01-25 08:21] LABS: BASOPHILS 0.3 %; BASOPHILS ABSOLUTE 0.03 10/3/uL (0.0-0.16); EOSINOPHILS 3.3 %; EOSINOPHILS ABSOLUTE 0.39 10/3/uL (0.0-0.53); HEMATOCRIT 27.2 % (36.0-48.0); HEMOGLOBIN 8.4 g/dL (12.0-16.0); IMMATURE GRANULOCYTES 0.4 %; IMMATURE GRANULOCYTES ABSOLUTE 0.05 10/3/uL (0.0-0.11); LYMPHOCYTES 10.9 %; LYMPHOCYTES ABSOLUTE 1.27 10/3/uL (0.67-4.30); MANUAL DIFF NO %; MEAN CORPUS HGB CONC 30.9 g/dL (32.0-36.0); MEAN CORPUSCULAR VOLUME 93.8 fL (80-100); MEAN PLATELET VOLUME 11.6 fL (9.2-13.0); MONOCYTES 6.4 %; MONOCYTES ABSOLUTE 0.75 10/3/uL (0.21-1.20); NEUTROPHILS 78.7 %; NEUTROPHILS ABSOLUTE 9.17 10/3/uL (2.02-8.40); PLATELET COUNT 188 10/3/uL (150-400); RBC DISTRIBUTION WIDTH 12.9 % (12.0-16.0); WHITE BLOOD CELLS 11.7 10/3/uL (4.5-10.5)
[2017-01-25 08:34] LABS: ALBUMIN 3.2 G/DL (3.5-5.0); BUN (BLOOD UREA NITROGEN) 77 MG/DL (6-23); CALCIUM, SERUM 8.8 MG/DL (8.5-10.4); CHLORIDE, SERUM 100 MMOL/L (96-112); CO2 (CARBON DIOXIDE) 35 MMOL/L (24-34); CREATININE 2.27 MG/DL (0.55-1.02); GFR AFRICAN AMERICAN 28 ML/MIN (>=60); GFR NON AFRICAN AMERICAN 24 ML/MIN (>=60); GLUCOSE, SERUM 192 MG/DL (60-99); PHOSPHORUS, SERUM 4.4 MG/DL (2.5-4.5); POTASSIUM, SERUM 5.9 MMOL/L (3.5-5.3); SODIUM, SERUM 140 MMOL/L (135-148)
[2017-01-25 14:08] LABS: BUN (BLOOD UREA NITROGEN) 73 MG/DL (6-23); CALCIUM, SERUM 8.6 MG/DL (8.5-10.4); CHLORIDE, SERUM 97 MMOL/L (96-112); CO2 (CARBON DIOXIDE) 36 MMOL/L (24-34); CREATININE 2.13 MG/DL (0.55-1.02); GFR AFRICAN AMERICAN 30 ML/MIN (>=60); GFR NON AFRICAN AMERICAN 26 ML/MIN (>=60); GLUCOSE, SERUM 187 MG/DL (60-99); POTASSIUM, SERUM 5.4 MMOL/L (3.5-5.3); SODIUM, SERUM 139 MMOL/L (135-148)
[2017-01-26 04:50] LABS: BASOPHILS 0.1 %; BASOPHILS ABSOLUTE 0.01 10/3/uL (0.0-0.16); EOSINOPHILS 4.2 %; EOSINOPHILS ABSOLUTE 0.34 10/3/uL (0.0-0.53); HEMATOCRIT 25.8 % (36.0-48.0); IMMATURE GRANULOCYTES 0.2 %; IMMATURE GRANULOCYTES ABSOLUTE 0.02 10/3/uL (0.0-0.11); LYMPHOCYTES 13.5 %; MEAN CORPUSCULAR HEMOGLOB 29.2 pg (26.0-34.0); MEAN CORPUSCULAR VOLUME 94.2 fL (80-100); MEAN PLATELET VOLUME 11.7 fL (9.2-13.0); MONOCYTES 5.9 %; MONOCYTES ABSOLUTE 0.48 10/3/uL (0.21-1.20); NEUTROPHILS 76.1 %; NEUTROPHILS ABSOLUTE 6.19 10/3/uL (2.02-8.40); PLATELET COUNT 174 10/3/uL (150-400); RED CELL COUNT 2.74 10/6/uL (4.0-5.6); WHITE BLOOD CELLS 8.1 10/3/uL (4.5-10.5)
[2017-01-26 04:58] LABS: MANUAL DIFF NO %
[2017-01-26 05:08] LABS: ALBUMIN 3.1 G/DL (3.5-5.0); C-REACTIVE PROTEIN 8.6 MG/L (<8.0); CALCIUM, SERUM 8.7 MG/DL (8.5-10.4); CHLORIDE, SERUM 100 MMOL/L (96-112); CO2 (CARBON DIOXIDE) 35 MMOL/L (24-34); CREATININE 1.72 MG/DL (0.55-1.02); GFR AFRICAN AMERICAN 39 ML/MIN (>=60); GFR NON AFRICAN AMERICAN 33 ML/MIN (>=60); GLUCOSE, SERUM 190 MG/DL (60-99); PHOSPHORUS, SERUM 4.6 MG/DL (2.5-4.5); SODIUM, SERUM 141 MMOL/L (135-148)
[2017-01-26 05:10] LABS: BUN (BLOOD UREA NITROGEN) 63 MG/DL (6-23)
[2017-01-26 05:51] LABS: PROCALCITONIN <0.05 ng/mL (<0.5)
[2017-01-27 05:52] LABS: ALBUMIN 3.1 G/DL (3.5-5.0); BUN (BLOOD UREA NITROGEN) 49 MG/DL (6-23); CALCIUM, SERUM 8.4 MG/DL (8.5-10.4); CHLORIDE, SERUM 99 MMOL/L (96-112); CO2 (CARBON DIOXIDE) 36 MMOL/L (24-34); CREATININE 1.56 MG/DL (0.55-1.02); GFR AFRICAN AMERICAN 44 ML/MIN (>=60); GFR NON AFRICAN AMERICAN 38 ML/MIN (>=60); GLUCOSE, SERUM 147 MG/DL (60-99); PHOSPHORUS, SERUM 3.7 MG/DL (2.5-4.5); POTASSIUM, SERUM 5.7 MMOL/L (3.5-5.3); SODIUM, SERUM 142 MMOL/L (135-148)
[2017-01-28 05:43] LABS: BASOPHILS 0.2 %; BASOPHILS ABSOLUTE 0.02 10/3/uL (0.0-0.16); EOSINOPHILS ABSOLUTE 0.25 10/3/uL (0.0-0.53); HEMATOCRIT 26.8 % (36.0-48.0); HEMOGLOBIN 8.1 g/dL (12.0-16.0); IMMATURE GRANULOCYTES 0.4 %; IMMATURE GRANULOCYTES ABSOLUTE 0.03 10/3/uL (0.0-0.11); LYMPHOCYTES 16.2 %; LYMPHOCYTES ABSOLUTE 1.36 10/3/uL (0.67-4.30); MEAN CORPUS HGB CONC 30.2 g/dL (32.0-36.0); MEAN CORPUSCULAR VOLUME 96.1 fL (80-100); MEAN PLATELET VOLUME 11.4 fL (9.2-13.0); MONOCYTES 5.6 %; MONOCYTES ABSOLUTE 0.47 10/3/uL (0.21-1.20); NEUTROPHILS 74.6 %; NEUTROPHILS ABSOLUTE 6.29 10/3/uL (2.02-8.40); PLATELET COUNT 188 10/3/uL (150-400); RBC DISTRIBUTION WIDTH 12.7 % (12.0-16.0); RED CELL COUNT 2.79 10/6/uL (4.0-5.6); WHITE BLOOD CELLS 8.4 10/3/uL (4.5-10.5)
[2017-01-28 05:44] LABS: MANUAL DIFF NO %
[2017-01-28 05:58] LABS: CHLORIDE, SERUM 100 MMOL/L (96-112); CO2 (CARBON DIOXIDE) 36 MMOL/L (24-34); CREATININE 1.45 MG/DL (0.55-1.02); GFR AFRICAN AMERICAN 48 ML/MIN (>=60); GFR NON AFRICAN AMERICAN 41 ML/MIN (>=60); POTASSIUM, SERUM 4.9 MMOL/L (3.5-5.3); SODIUM, SERUM 142 MMOL/L (135-148)
[2017-01-28 05:59] LABS: BUN (BLOOD UREA NITROGEN) 35 MG/DL (6-23); GLUCOSE, SERUM 215 MG/DL (60-99)
== END 2017-01-28 18:56 | DRG 291 ==
LOC: ER 21:07 → 6NO 22:45
PROVIDERS: Emergency Medicine; Internal Medicine; Internal Medicine Nephrology; Nurse Practitioner; Student in an Organized Health Care Education/Training Program
DX: I13.0 Hypertensive heart and chronic kidney disease with heart failure and stage 1 through stage 4 chronic kidney disease, or unspecified chronic kidney disease (principal); I50.31 Acute diastolic (congestive) heart failure; J96.21 Acute and chronic respiratory failure with hypoxia; E11.21 Type 2 diabetes mellitus with diabetic nephropathy; N17.9 Acute kidney failure, unspecified; E11.43 Type 2 diabetes mellitus with diabetic autonomic (poly)neuropathy; E11.22 Type 2 diabetes mellitus with diabetic chronic kidney disease; D62 Acute posthemorrhagic anemia; N18.3 Chronic kidney disease, stage 3 (moderate); K31.84 Gastroparesis; Z68.42 Body mass index [BMI] 45.0-49.9, adult; J44.1 Chronic obstructive pulmonary disease with (acute) exacerbation; R33.9 Retention of urine, unspecified; G47.33 Obstructive sleep apnea (adult) (pediatric); D64.9 Anemia, unspecified; E11.65 Type 2 diabetes mellitus with hyperglycemia; E11.649 Type 2 diabetes mellitus with hypoglycemia without coma; E66.01 Morbid (severe) obesity due to excess calories; M79.7 Fibromyalgia; G89.4 Chronic pain syndrome; E87.5 Hyperkalemia; K76.0 Fatty (change of) liver, not elsewhere classified; N18.9 Chronic kidney disease, unspecified; M54.9 Dorsalgia, unspecified; Z77.22 Contact with and (suspected) exposure to environmental tobacco smoke (acute) (chronic); K59.00 Constipation, unspecified; Z90.710 Acquired absence of both cervix and uterus; I25.10 Atherosclerotic heart disease of native coronary artery without angina pectoris; Z95.2 Presence of prosthetic heart valve; Z79.891 Long term (current) use of opiate analgesic
CPT/HCPCS: 36600; 71020; 76775; 80048; 80069; 81001; 82533; 82550; 82553; 82570; 82607; 82728; 82746; 82805; 82947; 82962; 83540; 83550; 83615; 83735; 83880; 84145; 84155; 84156; 84165; 84300; 84443; 84484; 85025; 85045; 85610; 85730; 86140; 93005; 93971; 94640; 94660; 96374; 97110-GO; 97110-GP; 97116-GP; 97162-GP; 97166-GO; 97530-GO; 99285; A9270-GY; C8929; G8978-CK-GP; G8979-CK-GP; G8987-CK-GO; G8988-CJ-GO; J0834; J1610; J2405; P9047; Q9957

== ENCOUNTER 2017-02-21 14:14 | Emergency (ER) | payer MEDICARE, OTHER ==
[~2017-02-21 14:14] MED LIST changes: +ANOROELLIPTA INH; +APRES50 PO; +ASAB PO; +BROMFENAC 0.09% OPH; +CARDCD120 PO; +CARDCD180 PO; +CILOXAN OPH; +CIP5 PO; +CLARIT10 PO; +COMBIVENT RESPIM4 GM INH; +DSS PO; +DUONEB INH; +DURA75 TOP; +FERROUS SULF325 M1 PO; +FLONASE NAS; +L40 PO; +LEVEMFLXPN SC; +LIPITOR40 PO; +NEUR400 PO; +NOVOPEN SC; +PR25 PO; +PREDFORTE OPH; +PRIN5 PO; +RANEXA1000 MG PO; +REFRES1 OPH
[2017-02-21 16:00] LABS: BASOPHILS 0.1 %; BASOPHILS ABSOLUTE 0.02 10/3/uL (0.0-0.16); EOSINOPHILS 2.1 %; EOSINOPHILS ABSOLUTE 0.29 10/3/uL (0.0-0.53); ER CBC TAT 0 Hrs 10 Mins; HEMATOCRIT 27.1 % (36.0-48.0); HEMOGLOBIN 8.6 g/dL (12.0-16.0); IMMATURE GRANULOCYTES 0.4 %; IMMATURE GRANULOCYTES ABSOLUTE 0.06 10/3/uL (0.0-0.11); LYMPHOCYTES 6.3 %; LYMPHOCYTES ABSOLUTE 0.88 10/3/uL (0.67-4.30); MANUAL DIFF NO %; MEAN CORPUS HGB CONC 31.7 g/dL (32.0-36.0); MEAN CORPUSCULAR HEMOGLOB 29.4 pg (26.0-34.0); MEAN CORPUSCULAR VOLUME 92.5 fL (80-100); MEAN PLATELET VOLUME 11.8 fL (9.2-13.0); MONOCYTES 6.3 %; MONOCYTES ABSOLUTE 0.88 10/3/uL (0.21-1.20); NEUTROPHILS 84.8 %; NEUTROPHILS ABSOLUTE 11.92 10/3/uL (2.02-8.40); PLATELET COUNT 229 10/3/uL (150-400); RED CELL COUNT 2.93 10/6/uL (4.0-5.6); WHITE BLOOD CELLS 14.1 10/3/uL (4.5-10.5)
[2017-02-21 16:07] LABS: INTERNATIONAL NORMAL RATI 1.1 UNITS (-); PARTIAL THROMBO TIME 26.8 SEC (22.5-37.2); PROTIME (NOT ORD) 14.1 SEC (12.0-14.5)
[2017-02-21 16:14] LABS: BUN (BLOOD UREA NITROGEN) 69 MG/DL (6-23); CHEST PAIN PROFILE TAT 0 Hrs 24 Mins; CHLORIDE, SERUM 96 MMOL/L (96-112); CO2 (CARBON DIOXIDE) 36 MMOL/L (24-34); CREATININE 2.54 MG/DL (0.55-1.02); GFR AFRICAN AMERICAN 24 ML/MIN (>=60); GFR NON AFRICAN AMERICAN 21 ML/MIN (>=60); GLUCOSE, SERUM 287 MG/DL (60-99); POTASSIUM, SERUM 5.6 MMOL/L (3.5-5.3); SODIUM, SERUM 136 MMOL/L (135-148); TROPONIN I 0.02 NG/ML (<0.05)
[2017-02-21 16:59] LABS: BE (BASE EXCESS) 5.5 MEQ/L (0 +/- 2.5); DEVICE NC; HCO3 (ACTUAL BICARBONATE) 33.1 MEQ/L (23-27); HEMOBLOGIN CONTENT 9.1 G/DL (12-16); INSTRUMENT SERIAL # 8087; O2 CONTENT 11.9 VOL% (18-24); PCO2 (CO2 TENSION) 68 MMHG (35-45); PO2 (O2 TENSION) 77 MMHG (79-93); SAMPLE Arterial
[2017-02-21 17:00] LABS: ALLENS TEST Pos
== END 2017-02-21 20:17 | disposition home or self-care (01) ==
LOC: ER 14:14
PROVIDERS: Physician Assistant
DX: R06.00 Dyspnea, unspecified (principal); I10 Essential (primary) hypertension; I50.9 Heart failure, unspecified; K21.9 Gastro-esophageal reflux disease without esophagitis; E11.9 Type 2 diabetes mellitus without complications; Z88.2 Allergy status to sulfonamides; Z88.8 Allergy status to other drugs, medicaments and biological substances; Z79.4 Long term (current) use of insulin; Z79.899 Other long term (current) drug therapy
CPT/HCPCS: 36600; 71010; 80048; 82805; 83735; 83880; 84484; 85025; 85610; 85730; 93005; 99285